=== PATIENT | female | born 1945 ===

== ENCOUNTER 2021-07-15 11:55 | Emergency (ER) | payer OTHER ==
[~2021-07-15] VITALS: Ht 157.5 cm; Wt 59.0 kg
[2021-07-15] MEDS ORDERED: PANTOPRAZOLE SO40 M2 PO (12:06)
[2021-07-15] MEDS ORDERED: MEMANTINE HCL10 MG PO (12:06)
[2021-07-15] MEDS ORDERED: ALENDRONATE SOD70 MG PO (12:06)
[2021-07-15] MEDS ORDERED: PEPCID AC10 MG PO (12:07)
[2021-07-15] MEDS ORDERED: MIRTAZAPINE30 MG PO (12:07)
[2021-07-15] MEDS ORDERED: DONEPEZIL HCL OD5 MG PO (12:08)
[2021-07-15] MEDS ORDERED: COZAAR50 MG PO (12:09)
[2021-07-15] MEDS ORDERED: GLIPIZIDE XL2.5 MG PO (12:09)
== END 2021-07-15 14:59 | disposition home or self-care (01) ==
LOC: ER 11:55
DX: M79.18 Myalgia, other site (principal); M25.59 Pain in other specified joint; Z11.52 Encounter for screening for COVID-19